=== PATIENT | female | born 1935 | race Caucasian/White ===

== ENCOUNTER 2016-11-10 03:19 | Emergency (ER) | payer MEDICARE, OTHER ==
[2016-11-10 03:19] VITALS: BMI 30.1
--- NOTE | 2016-11-10 04:32 | C.PDOC ---
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 Patient states that she felt that her blood pressure has been elevated for a few months now and her PMD is aware and preferred to keep her on same regimen. Patient states despite being compliant with all her meds her BP was 202 / 114 on BP monitor at home and had a frontal headache NURSING CLINICAL DIRECTOR with dizziness. Pt took two Tylenol prior to coming to ER which improved the headache minimally. Pt denies dizzibess at this time, blurred vision, slurred speech, weakness. Time Seen by Provider: 11/10/16 04:05 Chief Complaint (Nursing): High Blood Pressure History Per: Patient History/Exam Limitations: no limitations Onset/Duration Of Symptoms: Days Current Symptoms Are (Timing): Still Present Associated Symptoms: Headache (frontal). denies: Blurred Vision Past Medical History Reviewed: Historical Data, Nursing Documentation, Vital Signs Vital Signs: Last Vital Signs Temp 97.9 F 11/10/16 03:27 Pulse 71 11/10/16 05:19 Resp 16 11/10/16 05:19 BP 156/92 H 11/10/16 05:19 Pulse Ox 97 11/10/16 05:45 - Medical History PMH: Gastritis, HTN Surgical History: No Surg Hx Family History: States: No Known Family Hx, Unknown Family Hx - Social History Hx Tobacco Use: No Hx Alcohol Use: No Hx Substance Use: No - Immunization History Hx Tetanus Toxoid Vaccination: No Hx Influenza Vaccination: No Hx Pneumococcal Vaccination: No Review Of Systems Constitutional: Negative for: Weakness Eyes: Negative for: Vision Change Neurological: Positive for: Headache (frontal). Negative for: Change in Speech , Dizziness Physical Exam - Physical Exam Appears: Non-toxic, No Acute Distress Skin: Normal Color, Warm Eye(s): bilateral: Normal Inspection, EOMI Neck: Supple Chest: Symmetrical Cardiovascular: Rhythm Regular Respiratory: Normal Breath Sounds, No Rales Gastrointestinal/Abdominal: Normal Exam, Soft, No Tenderness Extremity: Normal ROM, No Deformity, No Swelling Neurological/Psych: Oriented x3, Normal Speech, Normal Cognition, Normal Motor, Normal Sensation Gait: Steady ED Course And Treatment - Laboratory Results Result Diagrams: 11/10/16 04:54 11/10/16 04:54 ECG: Interpreted By Me, Viewed By Me ECG Rhythm: Sinus Rhythm (71), 1st Degree HB, ST/T Changes (non-specific) O2 Sat by Pulse Oximetry: 97 Pulse Ox Interpretation: Normal Reevaluation Time: 06:23 Reassessment Condition: Improved Medical Decision Making Medical Decision Making: Time: 329 Impression: 81y/o female presents for evaluation of high blood pressure Plan: -- Labs -- CT Head time: 05 CT Head FINDINGS: Brain: Mild atrophy. No intracranial hemorrhage. No mass. Minimal decreased attenuation within periventricular white matter. No definite edema. Ventricles: No hydrocephalus. Bones/joints: No acute fracture. Soft tissues: Unremarkable. Vasculature: Minimal atherosclerotic disease of intracranial arteries. Sinuses: No acute sinusitis. Mastoid air cells: No mastoid effusion. Orbits: Unremarkable as visualized. IMPRESSION: 1. Nonspecific white matter changes. Acute infarction may be CT occult within first 24 hours. If a focal deficit persists, consider followup CT or MRI for further evaluation. 2. Incidental/non-acute findings are described above. 6AM- Pt feels better in NAD, VSS (BP has improved with no further antihypertensive agents). Will follow up with PMD for BP management. Return precautions discussed and understood by pt Disposition Counseled Patient/Family Regarding: Diagnosis, Need For Followup, Rx Given - Disposition Referrals: Your doctor, PMD [Other] Disposition: HOME/ ROUTINE Disposition Time: 04:32 Condition: STABLE Additional Instructions: Please continue current management Call your doctor's office today for BP management Return to ER if weakness, numbness, chest pain, Severe headache, fainting or worse Instructions: Hypertension (ED) Forms: [facility] (Portuguese) Print Language: TURKISH - Clinical Impression Clinical Impression: Hypertension - 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 - Scribe Statement The provider has reviewed the documentation as recorded by the Loki Viera All medical record entries made by the Loki were at my direction and personally dictated by me. I have reviewed the chart and agree that the record accurately reflects my personal performance of the history, physical exam, medical decision making, and the department course for this patient. I have also personally directed, reviewed, and agree with the discharge instructions and disposition.
[2016-11-10 04:57] LABS: BASO % 0.3 % (0.0-2.0); HEMATOCRIT 38.5 % (34.0-47.0); LYMPH # 1.5 K/uL (1.0-4.3); LYMPH % 13.5 % (20.0-40.0); MEAN CELL VOLUME 68.1 fL (81.0-99.0); MEAN CORPUSCULAR HEMOGLOBIN 21.4 pg (27.0-31.0); MEAN CORPUSCULAR HGB CONC 31.4 g/dL (33.0-37.0); MEAN PLATELET VOLUME 8.1 fL (7.2-11.7); MONO # 0.5 K/uL (0.0-0.8); MONO % 4.4 % (0.0-10.0); RED CELL DISTRIBUTION WIDTH 14.9 % (11.5-14.5); WHITE BLOOD COUNT 10.9 K/uL (4.8-10.8)
[2016-11-10 05:29] LABS: CHLORIDE 107 mmol/L (98-107); SODIUM 140 mmol/L (132-148)
[2016-11-10 05:30] LABS: POTASSIUM 4.2 mmol/L (3.6-5.2)
[2016-11-10 05:32] LABS: ALB/GLOB RATIO 1.4 (1.0-2.1); ALKALINE PHOSPHATASE 80 U/L (38-126); ALT/SGPT 49 U/L (9-52); AST/SGOT 45 U/L (14-36); BILIRUBIN,TOTAL 0.5 mg/dL (0.2-1.3); BLOOD UREA NITROGEN 18 mg/dL (7-17); CARBON DIOXIDE 20 mmol/L (22-30); GFR AFRICAN-AMERICAN > 60; GLUCOSE,RANDOM 115 mg/dL (65-105); TOTAL PROTEIN 7.2 g/dL (6.3-8.3)
[2016-11-10 05:33] LABS: CALCIUM 8.9 mg/dl (8.6-10.4)
--- NOTE | 2016-11-10 05:43 | CT ---
EXAM: CT Head Without Intravenous Contrast CLINICAL HISTORY: 81 years old, female; Pain; Headache; Patient HX: 4-3-15 TECHNIQUE: Axial computed tomography images of the head/brain without intravenous contrast. All CT scans at this facility use one or more dose reduction techniques, viz.: automated exposure control; ma/kV adjustment per patient size (including targeted exams where dose is matched to indication; i.e. head); or iterative reconstruction technique. COMPARISON: CT - HEAD W/O CONTRAST 05/29/2014 3:42:50 AM FINDINGS: Brain: Mild atrophy. No intracranial hemorrhage. No mass. Minimal decreased attenuation within periventricular white matter. No definite edema. Ventricles: No hydrocephalus. Bones/joints: No acute fracture. Soft tissues: Unremarkable. Vasculature: Minimal atherosclerotic disease of intracranial arteries. Sinuses: No acute sinusitis. Mastoid air cells: No mastoid effusion. Orbits: Unremarkable as visualized. IMPRESSION: 1. Nonspecific white matter changes. Acute infarction may be CT occult within first 24 hours. If a focal deficit persists, consider followup CT or MRI for further evaluation. 2. Incidental/non-acute findings are described above.
[2016-11-10 06:35] VITALS: BP 128/68; PULSE 64; RESP 18; TEMP 97.7; O2SAT 98
== END 2016-11-10 06:42 | disposition home or self-care (01) ==
LOC: C.ER 03:19
DX: I10 Essential (primary) hypertension (principal)
CPT/HCPCS: 70450; 80053; 85025; 96374; 99285; J2765